=== PATIENT | female | born 1980 | race Caucasian/White ===

== ENCOUNTER 2020-07-24 22:03 | Emergency (ER) | payer BC ==
[~2020-07-24] VITALS: Ht 170.2 cm; Wt 63.5 kg
--- NOTE | 2020-07-24 22:10 | NUR ---
ED Nurse Note: pt MICHELLE JADYN RA 28 from home s/p sz 30 min [employer]. per EMS, sz was witnessed by pt's and lasted for about 20 seconds. there is no oral or head trauma, pt is c/o nausea. pt reports that she last had a sz 10 years ago but was never medicated for it, states she is only taking oral contraceptive, no other meds at this time. pt arrived with a 20 gauge IV in the L hand that is patent and intact, placed by paramedics. all safety and sz precautions are in place
[2020-07-24] MEDS ORDERED: levETIRAcetam 500mg/NS100ml 110 ML IV ONE (22:15)
--- NOTE | 2020-07-24 22:16 | Emergency Room Report ---
History of Present Illness General Chief Complaint: Seizure Source: Patient Present Illness [facility] This is a 39-year-old female with no past medical history. She presents with chief complaint of seizure. Witnessed by her . said that patient was repeating her words and then passed out. She had a tonic-clonic seizure activity lasting for a minute or so. She did have some oral trauma. No incontinence of bowel or urine. No postictal. By time EMS got there. She did have a history of seizure about 10 years ago. Was attributed to dehydration. She is not on any medication. No alcohol drugs. No other complaint. back to baseline now. Allergies: Coded Allergies: No Known Allergies (Unverified , 07/24/20) COVID-19 Screening Contact w/high risk pt: No Experienced COVID-19 symptoms?: No COVID-19 Testing performed PLASTERER SPOT: No Patient History Past Medical History: see triage record, old chart reviewed Past Surgical History: none Pertinent Family History: none Social History: Denies: smoking Now: No Immunizations: other Reviewed Nursing Documentation: PMH: Agreed; PSxH: Agreed Review of Systems Eye: Denies: eye pain, blurred vision ENT: Denies: ear pain, nose congestion, throat swelling Respiratory: Denies: cough, shortness of breath Cardiovascular: Denies: chest pain, palpitations Gastrointestinal: Denies: abdominal pain, diarrhea, nausea, vomiting Musculoskeletal: Denies: back pain, joint pain Skin: Denies: rash Neurological: Denies: headache, numbness Endocrine: Denies: increased thirst, increased urine Hematologic/Lymphatic: Denies: easy bruising All Other Systems: negative except mentioned in HPI Physical Exam Vital Signs Date Time Temp Pulse Resp B/P (MAP) Pulse Ox O2 Delivery O2 Flow Rate FiO2 07/24/20 22:03 98.4 108 14 157/102 (120) 99 Room Air Vitals with high blood pressure Sp02 EP Interpretation: reviewed, normal General Appearance: well appearing, no apparent distress, alert Head: normocephalic, atraumatic Eyes: bilateral eye PERRL, bilateral eye EOMI ENT: hearing grossly normal, normal pharynx, other - Minor abrasion to right tip of tongue Neck: full range of motion, supple, no meningismus Respiratory: chest non-tender, lungs clear, normal breath sounds Cardiovascular #1: regular rate, rhythm, no murmur Gastrointestinal: normal bowel sounds, non tender, no mass, no organomegaly, no bruit, non-distended Musculoskeletal: back normal, normal range of motion, gait/station normal Psychiatric: mood/affect normal Medical Decision Making Diagnostic Impression: Primary Impression: Epileptic seizure, generalized ER Course Patient presents with tonic-clonic seizure. No evidence of any meningitis, bleed or neoplastic process. She is back to baseline now. Her metabolic acidosis probably secondary to her seizure. She does have a mild urinary tract infection. We will put her on antibiotics. Will discharge home with referral to see neurology. I did do a DMV report because of her seizure. This will restrict her driving. I explained to this to the patient and she expressed understanding. Rhythm Strip Diag. Results EP Interpretation: yes Rate: 78 Rhythm: NSR, no PVC's, no ectopy CT/MRI/US Diagnostic Results CT/MRI/US Diagnostic Results : Imaging Test Ordered: CT head Impression Per radiologist negative Last Vital Signs Date Time Temp Pulse Resp B/P (MAP) Pulse Ox O2 Delivery O2 Flow Rate FiO2 07/24/20 22:03 98.4 108 14 157/102 (120) 99 Room Air Status: improved Disposition: HOME, SELF-CARE Condition: Stable Scripts Levetiracetam (KEPPRA) 500 Mg Tablet 500 MG ORAL EVERY 12 HOURS, #60 TAB 0 Refills Prov: Jose Baker MD 07/24/20 Patient Instructions: Seizure, Adult Additional Instructions: No driving because of the seizure. A DMV report was filed. Follow-up with your doctor in 7 days. You will need a referral to see a neurologist for clearance. Return if symptoms worsen. Jose Baker MD Jul 24, 2020 22:15
[2020-07-24 22:27] LABS: BASOPHILS % (AUTO) 2.3 % (0.0-2.0); EOSINOPHILS % (AUTO) 0.5 % (0.0-3.0); HEMOGLOBIN 14.7 G/DL (12.0-16.0); LYMPHOCYTES % (AUTO) 25.1 % (20.0-45.0); MEAN CORPUSCULAR VOLUME 101 FL (80-99); PLATELET COUNT 226 K/UL (150-450); RED BLOOD COUNT 4.35 M/UL (4.20-5.40); RED CELL DISTRIBUTION WIDTH 11.8 % (11.6-14.8); WHITE BLOOD COUNT 6.8 K/UL (4.8-10.8)
--- NOTE | 2020-07-24 22:28 | NUR ---
ED Nurse Note: pt transported to CT via gurney with IV NS and Keppra running per ERMD orders
[2020-07-24 22:32] VITALS: BP 157/102
[2020-07-24 22:39] LABS: APPEARANCE,URINE SLIGHTLY CLOUDY; BILIRUBIN, URINE NEGATIVE (NEGATIVE); COLOR,URINE PALE YELLOW; GLUCOSE, URINE (UA) NEGATIVE (NEGATIVE); KETONES,URINE 3+ (NEGATIVE); LEUKOCYTE ESTERASE ,URINE 1+ (NEGATIVE); NITRITE,URINE NEGATIVE (NEGATIVE); PH,URINE 7 (4.5-8.0); PROTEIN,URINE 2+ (NEGATIVE); UROBILINOGEN,URINE NORMAL MG/DL (0.0-1.0)
[2020-07-24 22:40] LABS: CALCIUM 9.4 MG/DL (8.5-10.1); CREATININE 1.1 MG/DL (0.55-1.30)
[2020-07-24 22:45] VITALS: BP 137/99
--- NOTE | 2020-07-24 22:50 | Diagnostic Imaging Report ---
EXAM: CT Head Without Intravenous Contrast CLINICAL HISTORY: SZ TECHNIQUE: Axial computed tomography images of the head/brain without intravenous contrast. CTDI is 53.40 mGy and DLP is 938.70 mGy-cm. One or more of the following dose reduction techniques were used: automated exposure control, adjustment of the mA and/or kV according to patient size, use of iterative reconstruction technique. COMPARISON: None available. FINDINGS: Brain: Unremarkable. No hemorrhage. No significant white matter disease. No edema. Ventricles: Unremarkable. No ventriculomegaly. Bones/joints: Unremarkable. No acute fracture. Soft tissues: Unremarkable. Sinuses: Unremarkable as visualized. No acute sinusitis. Mastoid air cells: Unremarkable as visualized. No mastoid effusion. IMPRESSION: No acute intracranial abnormality.
--- NOTE | 2020-07-24 23:01 | NUR ---
HAND-OFF: Report given to DAYSI Roque
--- NOTE | 2020-07-24 23:05 | NUR ---
ED Nurse Note: Report received from DAYSI Carmen.
[2020-07-24] MEDS ORDERED: KEPPRA500 M4 ORAL (23:10)
[2020-07-24 23:15] VITALS: BP 133/78
--- NOTE | 2020-07-24 23:15 | NUR ---
ER DISCHARGE NOTE: Patient is cleared to be discharged per ERMD, pt is aox4, on room air, with stable vital signs. pt was given dc and prescription instructions, pt was able to verbalize understanding, pt id band and iv site removed without complications. pt is able to ambulate with steady gait. pt took all belongings.
== END 2020-07-24 23:15 | disposition home or self-care (01) ==
LOC: EDBD 22:03 → EMR 22:20
DX: G40.909 Epilepsy, unspecified, not intractable, without status epilepticus (principal); S00.512A Abrasion of oral cavity, initial encounter; X58.XXXA Exposure to other specified factors, initial encounter
CPT/HCPCS: 36415; 70450; 80048; 81003; 81025; 85025; 87086; 96361; 96374; 96375; 99284; J1953; J2405; J7030